=== PATIENT | male | born 1950 | race Caucasian/White ===

== ENCOUNTER 2020-03-21 13:54 | Inpatient (IN) | payer MEDICARE ==
[~2020-03-21] VITALS: Ht 188 cm; Wt 114.3 kg
[2020-03-21 15:14] VITALS: BP 126/74; BMI 32.4
[2020-03-21 15:42] LABS: BASOPHILS 0.3 % (0-2); EOSINOPHILS 2.1 % (0-7); HEMATOCRIT 44.6 % (42.0-54.0); HEMOGLOBIN 15.4 g/dL (13.5-17.5); IMMATURE GRANULOCYTES 0.2 % (0-5); LYMPHOCYTE ABS# 2.24 10x3/uL (1.32-3.57); LYMPHOCYTES 34.1 % (15-50); MCH 30.6 pg (26.0-34.0); MCHC 34.5 g/dL (31.0-37.0); MCV 88.5 fL (80.0-100.0); MEAN PLATELET VOLUME 8.6 fL (7.4-10.4); NEUTROPHIL ABS# 3.56 10x3/uL (1.78-5.38); NEUTROPHILS 54.3 % (40-80); PLATELET COUNT 257 10x3/uL (130-400); RBC 5.04 10x6/uL (4.20-6.10); RDW 13.2 % (11.5-14.5); WBC 6.6 10x3/uL (4.8-10.8)
[2020-03-21 15:56] LABS: ALBUMIN 3.4 g/dL (3.4-5.0); BILIRUBIN - TOTAL 0.6 mg/dL (0.2-1.3); CALCIUM 9.2 mg/dL (8.5-10.1); CARBON DIOXIDE 26.9 mmol/L (21.0-32.0); CREATININE - SERUM 1.5 mg/dL (0.6-1.3); PROTEIN - SERUM 7.5 g/dL (6.4-8.2)
[2020-03-21 16:00] LABS: POTASSIUM - SERUM 2.9 mmol/L (3.5-5.1)
--- NOTE | 2020-03-21 19:30 | NUR ---
PT UNSURE ABOUT HAVING PROCEDURE DONE AT THIS HOSPITAL. PTs DAUGHTER AT BEDSIDE, STATES SHE WORKS IN OR AT [facility] AND WOULD LIKE TO SPEAK WITH SOMEONE ABOUT TRANSFERRING TO [facility] TO HAVE PROCEDURE. HOLDING OFF ON CONSENTS, BUT PT WILL REMAIN NPO AFTER MIDNIGHT IN CASE HE DECIDES TO DO PROCEDURE AT THIS HOSPITAL.
[2020-03-21 23:23] LABS: BILIRUBIN NEGATIVE (NEGATIVE); KETONE NEGATIVE (NEGATIVE); NITRITE NEGATIVE (NEGATIVE); UROBILINOGEN NORMAL mg/dL (< 2)
--- NOTE | 2020-03-22 00:16 | NUR ---
I have reviewed this patient and I concur with the Shift Assessment completed by the Licensed Practical Nurse today this shift.
--- NOTE | 2020-03-22 01:00 | NUR ---
PT UNSURE ABOUT CONVERSTATION EARLIER WITH DAUGHTER ABOUT WHERE HE WANTS PROCEDURE DONE. PT IS ORIENTED, BUT VERBAL RESPONSES ARE DELAYED AND DIFFICULTY RECALLING RECENT PAST. CONTINUING TO HOLD OFF ON CONSENTS, CTM.
--- NOTE | 2020-03-22 03:17 | NUR ---
EKG PERFORMED, TELEMETRY APPLIED. WILL NOT COMPLETE HIBICLENS, PT KEEPS REPETING, "I CAN'T DO WHAT YOU'RE TALKING ABOUT." CTM.
[2020-03-22 04:00] VITALS: BP 126/69
[2020-03-22 06:16] LABS: INR 1.1 (0.85-1.17); PROTIME 13.2 SECONDS (11.6-15.0)
[2020-03-22 06:17] LABS: APTT 62.6 SECONDS (22.8-39.4)
[2020-03-22 06:53] LABS: BASOPHILS 0.5 % (0-2); EOSINOPHILS 2.4 % (0-7); HEMATOCRIT 43.8 % (42.0-54.0); HEMOGLOBIN 15.1 g/dL (13.5-17.5); LYMPHOCYTES 30.2 % (15-50); MCH 30.6 pg (26.0-34.0); MCHC 34.5 g/dL (31.0-37.0); MCV 88.8 fL (80.0-100.0); MEAN PLATELET VOLUME 8.7 fL (7.4-10.4); MONOCYTES 8.9 % (2-11); NEUTROPHIL ABS# 3.66 10x3/uL (1.78-5.38); PLATELET COUNT 251 10x3/uL (130-400); RBC 4.93 10x6/uL (4.20-6.10); RDW 13.2 % (11.5-14.5); WBC 6.3 10x3/uL (4.8-10.8)
[2020-03-22 07:01] LABS: ANION GAP 12.5 mmol/L (8-16); CALCIUM 8.8 mg/dL (8.5-10.1); CREATININE - SERUM 1.2 mg/dL (0.6-1.3); MAGNESIUM - SERUM 2.2 mg/dL (1.8-2.4); PHOSPHOROUS 3.2 mg/dL (2.5-4.9); THYROID STIMULATING HORMONE 0.94 uIU/mL (0.36-3.74)
[2020-03-22 07:06] LABS: POTASSIUM - SERUM 3.5 mmol/L (3.5-5.1)
--- NOTE | 2020-03-22 08:23 | NUR ---
CONSENT FOR PROCEDURE RECEIVED FROM DAUGHTER VIA TELEPHONE. WITNESSED BY DA FARFAN. PT UNABLE TO SIGN CONSENTS DUE TO INCREASED CONFUSION DURING THE NIGHT.
[2020-03-22 08:43] VITALS: BP 124/86
[2020-03-22 12:23] VITALS: Ht 188 cm; Wt 114.3 kg
[2020-03-22 13:13] VITALS: BP 131/78
[2020-03-22 14:54] VITALS: BP 119/73
[2020-03-22 17:54] VITALS: BP 117/60
[2020-03-22 20:00] VITALS: BP 121/68
[2020-03-22 22:55] LABS: UDS - AMPHET NEGATIVE QUAL (NEGATIVE); UDS - BARB NEGATIVE QUAL (NEGATIVE); UDS - BENZO POSITIVE QUAL (NEGATIVE); UDS - COCAINE NEGATIVE QUAL (NEGATIVE); UDS - OPIATE POSITIVE QUAL (NEGATIVE); UDS - PCP NEGATIVE QUAL (NEGATIVE); UDS - THC NEGATIVE QUAL (NEGATIVE)
[2020-03-23] VITALS: BP 141/79
--- NOTE | 2020-03-23 03:38 | NUR ---
I have reviewed this patient and I concur with the Shift Assessment completed by the Licensed Practical Nurse today this shift.
[2020-03-23 04:00] VITALS: BP 142/64
[2020-03-23 05:46] LABS: BASOPHILS 0.5 % (0-2); EOSINOPHILS 2.7 % (0-7); HEMATOCRIT 41.6 % (42.0-54.0); IMMATURE GRANULOCYTES 0.2 % (0-5); LYMPHOCYTE ABS# 2.19 10x3/uL (1.32-3.57); MCH 30.2 pg (26.0-34.0); MCHC 33.7 g/dL (31.0-37.0); MCV 89.8 fL (80.0-100.0); MEAN PLATELET VOLUME 8.9 fL (7.4-10.4); MONOCYTES 8.3 % (2-11); NEUTROPHIL ABS# 3.34 10x3/uL (1.78-5.38); NEUTROPHILS 53.3 % (40-80); PLATELET COUNT 255 10x3/uL (130-400); RBC 4.63 10x6/uL (4.20-6.10); RDW 13.4 % (11.5-14.5); WBC 6.3 10x3/uL (4.8-10.8)
[2020-03-23 05:57] LABS: ANION GAP 11.8 mmol/L (8-16); CALCIUM 8.3 mg/dL (8.5-10.1); CARBON DIOXIDE 25.9 mmol/L (21.0-32.0); CREATININE - SERUM 1.5 mg/dL (0.6-1.3); MAGNESIUM - SERUM 2.4 mg/dL (1.8-2.4); PHOSPHOROUS 2.9 mg/dL (2.5-4.9); POTASSIUM - SERUM 3.7 mmol/L (3.5-5.1)
--- NOTE | 2020-03-23 09:18 | MORECARE ---
CASE MANAGEMENT DISCHARGE SUMMARY PATIENT: KELLY CHATMAN UNIT: [id number] ADM DATE: 03/21/20 AGE: 69 : 48 SEX: M ROOM/BED: D.2211 AUTHOR: CJ ESTEVEZ PHYSICIAN: REFERRING PHYSICIAN: KRISTIAN FRANCISCO MD DATE OF SERVICE: 03/23/20 Discharge Plan Patient Name: KELLY CHATMAN [facility] [facility] 1950 Planned Disposition: Home with Home Health Anticipated Discharge Date: Discharge Date: Expected LOS: Initial Reviewer: [email or web address] Initial Review Date: 03/21/2020 Generated: 03/23/20 10:17 am DCPIA - Discharge Planning Initial Assessment Updated by [email or web address]: Adelaide Livingston on 03/23/20 9:14 am * Is the patient Alert and Oriented? Yes * How many steps to enter\exit or inside your home? * PCP DR JUSTIN * [facility]acy [facility] * Preadmission Environment Home Alone * ADLs Independent * Equipment None * List name and contact numbers for known caregivers / representatives who currently or will assist patient after discharge: MUSA MILLS [phone] * Verbal permission to speak to the caregivers and representatives has been obtained from the patient. N/A * Community resources currently utilized None * Additional services required to return to the preadmission environment? Yes * Can the patient safely return to the preadmission environment? Yes * Has this patient been hospitalized within the prior 30 days at any hospital? No Patient Name: KELLY CHATMAN Page [phone] at 0918 All edits/amendments must be made on the electronic document DICTATION DATE: 03/23/20917 INSULATION BLANKET MAKER: CARLOS 03/23/20917 RPT#: [id number] DC DATE: STATUS: ADM IN [facility] [address] [place] [address] END OF REPORT
[2020-03-23 09:26] VITALS: BP 115/73
--- NOTE | 2020-03-23 09:26 | MORECARE ---
CASE MANAGEMENT DISCHARGE SUMMARY PATIENT: KELLY CHATMAN UNIT: [id number] ADM DATE: 03/21/20 AGE: 69 : 48 SEX: M ROOM/BED: D.2211 AUTHOR: CJ ESTEVEZ PHYSICIAN: REFERRING PHYSICIAN: KRISTIAN FRANCISCO MD DATE OF SERVICE: 03/23/20 Discharge Plan Patient Name: KELLY CHATMAN Facility: [facility]:[place] : 1950 Planned Disposition: Home with Home Health Anticipated Discharge Date: Discharge Date: Expected LOS: Initial Reviewer: [email or web address] Initial Review Date: 03/21/2020 Generated: 03/23/20 10:25 am Comments DCP- Discharge Planning Updated by [email or web address]: Adelaide Livingston on 03/23/20 8:[address] Patient Name: KELLY CHATMAN Admission Status: Elective Accout number: [id number] Admission Date: 03-21-2020 : 1950 Admission Diagnosis:CELLULITIS OF BUTTOCK Attending: KRISTIAN FRANCISCO Current LOS: 2 Anticipated DC Date: Planned Disposition: Home with Home Health Primary Insurance: MEDICARE A & B Discharge Planning Comments: CM met with patient to complete initial dc planning assessment. CM educated patient on the CM role and verbal consent given by patient to complete assessment. Patient lives at home alone where he states he is independent with his care. At discharge patient plans to return home and feels this is a safe discharge. CM discussed availability of home health, rehab services, and medical equipment. He is apprehensive about having home health. He stated that he just moved in his apartment and is trying to get things situated. He stated that Musa will be his four horse hitch driver home and she will help him, but is not there all the time & doesn't live with him. I explained to him that this needs to be done daily and if she can not do it that he will need to make arrangements for someone else to do it. HH will not come daily. He again wasn't really sure about home health. I explained to him that he could refuse but Musa would need to come up here and learn or he would need to go to the MD office. He signed the KENJI for [facility] or [facility]. I have contacted [facility] and they will accept him and be able to start care tomorrow. Patient denied known discharge needs at this time. CM will continue to follow and will assist as needed with dc plans/needs. Vice President Network: Adelaide Livingston DCPIA - Discharge Planning Initial Assessment Updated by [email or web address]: Adelaide Livingston on 03/23/20 9:14 am * Is the patient Alert and Oriented? Yes * How many steps to enter\exit or inside your home? * PCP DR UJSTIN * [facility] * Preadmission Environment Home Alone * ADLs Independent * Equipment None * List name and contact numbers for known caregivers / representatives who currently or will assist patient after discharge: MUSA MILLS [phone] * Verbal permission to speak to the caregivers and representatives has been obtained from the patient. N/A * Community resources currently utilized None * Additional services required to return to the preadmission environment? Yes * Can the patient safely return to the preadmission environment? Yes * Has this patient been hospitalized within the prior 30 days at any hospital? No Last DP export: 03/23/20 8:18 am Patient Name: KELLY CHATMAN Page [id number] at 0926 All edits/amendments must be made on the electronic document DICTATION DATE: 03/23/20925 DRIVE IN WAITER/WAITRESS: CARLOS 03/23/20925 RPT#: [id number] DC DATE: STATUS: ADM IN [facility] [address] [place] [address] END OF REPORT
--- NOTE | 2020-03-23 09:34 | MORECARE ---
CASE MANAGEMENT DISCHARGE SUMMARY PATIENT: KELLY CHATMAN UNIT: [id number] ADM DATE: 03/21/20 AGE: 69 : 48 SEX: M ROOM/BED: D.2211 AUTHOR: CJ ESTEVEZ PHYSICIAN: REFERRING PHYSICIAN: KRISTIAN FRANCISCO MD DATE OF SERVICE: 03/23/20 Discharge Plan Patient Name: KELLY CHATMAN Facility: [facility]:[place] : 1950 Planned Disposition: Home with Home Health Anticipated Discharge Date: Discharge Date: Expected LOS: Initial Reviewer: [email or web address] Initial Review Date: 03/21/2020 Generated: 03/23/20 10:34 am Comments DCP- Discharge Planning Updated by [email or web address]: Adelaide Livingston on 03/23/20 8:[address] Patient Name: KELLY CHATMAN Admission Status: Elective Accout number: [id number] Admission Date: 03-21-2020 : 1950 Admission Diagnosis:CELLULITIS OF BUTTOCK Attending: KRISTIAN FRANCISCO Current LOS: 2 Anticipated DC Date: Planned Disposition: Home with Home Health Primary Insurance: MEDICARE A & B Discharge Planning Comments: CM met with patient to complete initial dc planning assessment. CM educated patient on the CM role and verbal consent given by patient to complete assessment. Patient lives at home alone where he states he is independent with his care. At discharge patient plans to return home and feels this is a safe discharge. CM discussed availability of home health, rehab services, and medical equipment. He is apprehensive about having home health. He stated that he just moved in his apartment and is trying to get things situated. He stated that Musa will be his pack train driver home and she will help him, but is not there all the time & doesn't live with him. I explained to him that this needs to be done daily and if she can not do it that he will need to make arrangements for someone else to do it. HH will not come daily. He again wasn't really sure about home health. I explained to him that he could refuse but Musa would need to come up here and learn or he would need to go to the MD office. He signed the [facility]I for [facility]. I have contacted [facility] and they will accept him and be able to start care tomorrow. Patient denied known discharge needs at this time. CM will continue to follow and will assist as needed with dc plans/needs. Batter Mixer: Adelaide Livingston DCPIA - Discharge Planning Initial Assessment Updated by [email or web address]: Adelaide Livingston on 03/23/20 9:14 am * Is the patient Alert and Oriented? Yes * How many steps to enter\exit or inside your home? * PCP DR JUSTIN * [facility] * Preadmission Environment Home Alone * ADLs Independent * Equipment None * List name and contact numbers for known caregivers / representatives who currently or will assist patient after discharge: MUSA MILLS [phone] * Verbal permission to speak to the caregivers and representatives has been obtained from the patient. N/A * Community resources currently utilized None * Additional services required to return to the preadmission environment? Yes * Can the patient safely return to the preadmission environment? Yes * Has this patient been hospitalized within the prior 30 days at any hospital? No External Providers [facility] Next Contact Date: Service Request Date: Service Type: Resolution: Reviewer: Comments: Coverage Notice Reviewer: [id number] - Adelaide Livingston Notice Issued Date-Time: 03/23/2020 9:00 Notice Type: Patient Choice Letter Notice Delivered To: Patient Relationship to Patient: Production Sampler Name: Delivery Method: HAND - Hand Delivered Marie Days: Prior Verbal Notification: Recipient Understood Notice: Yes Recipient Signature: Yes Med Rec Note Co-signed by Attending: Coverage Notice Comment: ROOC FOR HOME HEALTH Last DP export: 03/23/20 8:26 am Patient Name: KELLY CHATMAN Page [phone] at 0934 All edits/amendments must be made on the electronic document DICTATION DATE: 03/23/20933 PECAN GROWER: CARLOS 03/23/20933 RPT#: [id number] DC DATE: STATUS: ADM IN [facility] [address] [place] [address] END OF REPORT
[2020-03-23 13:58] VITALS: BP 128/89
[2020-03-23] MEDS ORDERED: CLINDAMYCIN HC300 MG PO (17:00)
--- NOTE | 2020-03-23 18:30 | NUR ---
REMOVED BOTH PIV'S REMOVED, FULLY INTACT, TOLERATED WELL. DENIES PAIN AT THIS TIME. DRESSING TO WOUND ON RIGHT BUTTOCK CLEANED AND NEW DRESSING PLACED. TOLERATED WELL. NO ACUTED DISTRESS NOTED. TAKEN TO ER EXIT VIA WC, TOLERATED WELL. DISCHARGE INSTRUCTIONS AND EDUCATION REVIEWED WITH MUSA MILLS, SPOUSE. RECEIVED INFORMATION WELL AND VERBALIZED HER UNDERSTANDING.
--- NOTE | 2020-03-24 07:25 | MORECARE ---
CASE MANAGEMENT DISCHARGE SUMMARY PATIENT: KELLY CHATMAN UNIT: [id number] ADM DATE: 03/21/20 AGE: 69 : 48 SEX: M ROOM/BED: D.2211 AUTHOR: CJ ESTEVEZ PHYSICIAN: REFERRING PHYSICIAN: KRISTIAN FRANCISCO MD DATE OF SERVICE: 03/24/20 Discharge Plan Patient Name: KELLY CHATMAN Facility: [facility]:[place] : 1950 Planned Disposition: Home with Home Health Anticipated Discharge Date: Discharge Date: 03/23/2020 Expected LOS: Initial Reviewer: [email or web address] Initial Review Date: 03/21/2020 Generated: 03/24/20 8:24 am Comments DCP- Discharge Planning Updated by [email or web address]: Adelaide Livingston on 03/24/20 6:[address] LATE ENTRY PATIENT DISCHARGED HOME WITH [facility] ON 03/23/20 AND WILL BE SEEN ON 03/24/20 DCP- Discharge Planning Updated by [email or web address]: Adelaide Livingston on 03/23/20 8:[address] Patient Name: KELLY CHATMAN Admission Status: Elective Accout number: [id number] Admission Date: 03-21-2020 : 1950 Admission Diagnosis:CELLULITIS OF BUTTOCK Attending: KRISTIAN FRANCISCO Current LOS: 2 Anticipated DC Date: Planned Disposition: Home with Home Health Primary Insurance: MEDICARE A & B Discharge Planning Comments: CM met with patient to complete initial dc planning assessment. CM educated patient on the CM role and verbal consent given by patient to complete assessment. Patient lives at home alone where he states he is independent with his care. At discharge patient plans to return home and feels this is a safe discharge. CM discussed availability of home health, rehab services, and medical equipment. He is apprehensive about having home health. He stated that he just moved in his apartment and is trying to get things situated. He stated that Musa will be his transporter driver home and she will help him, but is not there all the time & doesn't live with him. I explained to him that this needs to be done daily and if she can not do it that he will need to make arrangements for someone else to do it. HH will not come daily. He again wasn't really sure about home health. I explained to him that he could refuse but Musa would need to come up here and learn or he would need to go to the MD office. He signed the [facility]I for [facility]. I have contacted [facility] and they will accept him and be able to start care tomorrow. Patient denied known discharge needs at this time. CM will continue to follow and will assist as needed with dc plans/needs. Foreclosure Specialist: Adelaide Livingston DCPIA - Discharge Planning Initial Assessment Updated by [email or web address]: Adelaide Livingston on 03/23/20 9:14 am * Is the patient Alert and Oriented? Yes * How many steps to enter\exit or inside your home? * PCP DR JUSTIN * [facility] * Preadmission Environment Home Alone * ADLs Independent * Equipment None * List name and contact numbers for known caregivers / representatives who currently or will assist patient after discharge: MUSA MILLS [phone] * Verbal permission to speak to the caregivers and representatives has been obtained from the patient. N/A * Community resources currently utilized None * Additional services required to return to the preadmission environment? Yes * Can the patient safely return to the preadmission environment? Yes * Has this patient been hospitalized within the prior 30 days at any hospital? No Coverage Notice Reviewer: [id number] - Adelaide Livingston Notice Issued Date-Time: 03/23/2020 9:00 Notice Type: Patient Choice Letter Notice Delivered To: Patient Relationship to Patient: Motor Expert Name: Delivery Method: HAND - Hand Delivered Marie Days: Prior Verbal Notification: Recipient Understood Notice: Yes Recipient Signature: Yes Med Rec Note Co-signed by Attending: Coverage Notice Comment: ROOC FOR HOME HEALTH Last DP export: 03/23/20 8:35 am Patient Name: KELLY CHATMAN Page [id number] at 0725 All edits/amendments must be made on the electronic document DICTATION DATE: 03/24/20723 LIBRARY CATALOGING TECHNICIAN: CARLOS 03/24/20723 RPT#: [id number] DC DATE:03/23/20 STATUS: DIS IN [facility] [address] [place] [address] END OF REPORT
--- NOTE | 2020-03-24 10:08 | MORECARE ---
CASE MANAGEMENT DISCHARGE SUMMARY PATIENT: KELLY CHATMAN UNIT: [id number] ADM DATE: 03/21/20 AGE: 69 : 48 SEX: M ROOM/BED: D.2211 AUTHOR: CJ ESTEVEZ PHYSICIAN: REFERRING PHYSICIAN: KRISTIAN FRANCISCO MD DATE OF SERVICE: 03/24/20 Discharge Plan Patient Name: KELLY CHATMAN Facility: [facility]:[place] : 1950 Planned Disposition: Home with Home Health Anticipated Discharge Date: Discharge Date: 03/23/2020 Expected LOS: Initial Reviewer: [email or web address] Initial Review Date: 03/21/2020 Generated: 03/24/20 11:07 am Comments DCP- Discharge Planning Updated by [email or web address]: Adelaide Livingston on 03/24/20 6:[address] LATE ENTRY PATIENT DISCHARGED HOME WITH [facility] ON 03/23/20 AND WILL BE SEEN ON 03/24/20 DCP- Discharge Planning Updated by [email or web address]: Adelaide Livingston on 03/23/20 8:[address] Patient Name: KELLY CHATMAN Admission Status: Elective Accout number: [id number] Admission Date: 03-21-2020 : 1950 Admission Diagnosis:CELLULITIS OF BUTTOCK Attending: KRISTIAN FRANCISCO Current LOS: 2 Anticipated DC Date: Planned Disposition: Home with Home Health Primary Insurance: MEDICARE A & B Discharge Planning Comments: CM met with patient to complete initial dc planning assessment. CM educated patient on the CM role and verbal consent given by patient to complete assessment. Patient lives at home alone where he states he is independent with his care. At discharge patient plans to return home and feels this is a safe discharge. CM discussed availability of home health, rehab services, and medical equipment. He is apprehensive about having home health. He stated that he just moved in his apartment and is trying to get things situated. He stated that Musa will be his local city driver home and she will help him, but is not there all the time & doesn't live with him. I explained to him that this needs to be done daily and if she can not do it that he will need to make arrangements for someone else to do it. HH will not come daily. He again wasn't really sure about home health. I explained to him that he could refuse but Musa would need to come up here and learn or he would need to go to the MD office. He signed the K[facility]I for [facility]. I have contacted [facility] and they will accept him and be able to start care tomorrow. Patient denied known discharge needs at this time. CM will continue to follow and will assist as needed with dc plans/needs. Dev Ops Engineer: Adelaide Livingston DCPIA - Discharge Planning Initial Assessment Updated by [email or web address]: Adelaide Livingston on 03/23/20 9:14 am * Is the patient Alert and Oriented? Yes * How many steps to enter\exit or inside your home? * PCP DR JUSTIN * [facility] * Preadmission Environment Home Alone * ADLs Independent * Equipment None * List name and contact numbers for known caregivers / representatives who currently or will assist patient after discharge: MUSA MILLS [phone] * Verbal permission to speak to the caregivers and representatives has been obtained from the patient. N/A * Community resources currently utilized None * Additional services required to return to the preadmission environment? Yes * Can the patient safely return to the preadmission environment? Yes * Has this patient been hospitalized within the prior 30 days at any hospital? No Coverage Notice Reviewer: [id number] - Adelaide Livingston Notice Issued Date-Time: 03/23/2020 9:00 Notice Type: Patient Choice Letter Notice Delivered To: Patient Relationship to Patient: Court Crier Name: Delivery Method: HAND - Hand Delivered Marie Days: Prior Verbal Notification: Recipient Understood Notice: Yes Recipient Signature: Yes Med Rec Note Co-signed by Attending: Coverage Notice Comment: ROOC FOR HOME HEALTH Last DP export: 03/24/20 6:25 am Patient Name: KELLY CHATMAN Page [phone] at 1008 All edits/amendments must be made on the electronic document DICTATION DATE: 03/24/20 1008 INSURANCE FOLLOW UP REP: CARLOS 03/24/20 1008 RPT#: [id number] DC DATE:03/23/20 STATUS: DIS IN [facility] [address] [place] [address] END OF REPORT
--- NOTE | 2020-04-18 16:10 | OP ---
PATIENT NAME: KELLY CHATMAN MEDICAL RECORD: [id number] :[birth year] LOCATION:D.[id number] ADMISSION DATE:03/21/20 SURGEON: PAPA FRANCISCO MD DATE OF OPERATION: 03/22/2020 PREOPERATIVE DIAGNOSIS: Right buttock abscess. POSTOPERATIVE DIAGNOSIS: Right buttock abscess. Please see dimensions below. PROCEDURE: Excisional debridement of right buttock abscess. Dimensions of the debridement, including margins, measured 2.0 cm x 2.1 cm and was 1.7 cm deep. The tissues debrided including the abscess cavity, skin and subcutaneous tissue. SURGEON: Papa Francisco MD TELECOMMUNICATIONS FIELD TECHNICIAN: None. BLOOD LOSS: Minimal. ANESTHESIA: General. COMPLICATIONS: None. The risks, possible complications, and alternatives to the procedure were explained to the patient. He elects to proceed. OPERATIVE COURSE: The patient was conveyed to the operating room electively on 03/22/2020. General anesthesia was induced by the anesthesia staff. The patient was positioned. The right buttock was sterilely prepped and draped. With the scalpel, I sharply excised the skin and subcutaneous tissue around the abscess. I continued the dissection with the electrocautery. A plug of tissue was removed and meticulous hemostasis was achieved with electrocautery. I then packed the wound with gauze that had been soaked in Dakin's. A sterile dressing was applied. The patient was then extubated and conveyed to post-anesthesia care unit where he was in stable condition. TRANSINT:[id number] Voice Confirmation ID: [id number] DOCUMENT ID: [id number] PAPA FRANCISCO MD at 1610 CC: [id number] DICTATION DATE: 04/17/20 1542 CLERK CARRIER: 04/17/20 2315 DIS IN 03/23/20 [facility] [address] [place] [id number]
== END 2020-03-23 17:30 | disposition home health service (06) | DRG 572 ==
LOC: D.MS 13:54
PROVIDERS: Emergency Medicine; ADMIT Surgery; ATTEND Surgery
PROC: 0JB90ZZ Excision of Buttock Subcutaneous Tissue and Fascia, Open Approach (ICD-10-PCS; principal; 2020-03-22 12:00)
DX: L02.31 Cutaneous abscess of buttock (principal); B95.62 Methicillin resistant Staphylococcus aureus infection as the cause of diseases classified elsewhere; L03.317 Cellulitis of buttock; I10 Essential (primary) hypertension; E78.5 Hyperlipidemia, unspecified; M10.9 Gout, unspecified; F32.9 Major depressive disorder, single episode, unspecified; E87.6 Hypokalemia